=== PATIENT | female | born 1940 | race Caucasian/White ===

== ENCOUNTER 2020-07-03 13:42 | Outpatient (RCR) | payer MEDICARE, OTHER ==
[~2020-07-03 13:42] MED LIST: ALPRAZOLAM1 MG PO; AMLODIPINE BESYL5 MG PO; ASPIR 8181 MG PO; CLINDAMYCIN HC150 MG PO; ENOXAPARIN30 MG/0.3 SC; LEVAQUIN500 MG PO; LIPITOR20 MG PO; MAXZIDE 37.5 M1 EACH PO; OMEPRAZOLE40 MG PO; OXYCODONE-ACET1 EAC1 PO; PROMETHAZINE HC25 M1 PO; SERTRALINE HCL50 MG PO
== END 2020-07-09 ==
LOC: PT 13:42
PROVIDERS: ATTEND Specialist
DX: M17.0 Bilateral primary osteoarthritis of knee (principal)

== ENCOUNTER 2020-07-20 09:58 | Outpatient (RCR) | payer MEDICARE, OTHER ==
[2020-07-29] MEDS ORDERED: CIPRO500 MG/5 M PO (10:45)
== END 2020-08-08 ==
LOC: PT 09:58
PROVIDERS: ATTEND Specialist
DX: M17.0 Bilateral primary osteoarthritis of knee (principal)

== ENCOUNTER 2020-07-23 13:57 | Inpatient (IN) | payer MEDICARE, OTHER ==
[~2020-07-23] VITALS: Ht 162.6 cm; Wt 76.7 kg
[2020-07-23] MEDS ORDERED: SODIUM CHLORIDE 0.9% 1000ML 1,000 ML IV SCH ×2 (14:45→15:30)
[2020-07-23 14:47] LABS: BASOPHILS % 0.3 % (0.0-1.0); EOSINOPHILS % 0.3 % (0.0-6.0); HEMATOCRIT 35.6 % (34.2-44.1); HEMOGLOBIN 12.2 g/dL (12.0-16.0); LYMPHOCYTES # (AUTO) 0.7 (1.0-3.2); LYMPHOCYTES % 18.3 % (18.0-39.1); MEAN CORPUSCULAR HEMOGLOBIN 30.5 pg (28-32); MEAN CORPUSCULAR HGB CONC 34.3 g/dL (31-35); MONOCYTES # (AUTO) 0.1 (0.2-0.8); MONOCYTES % 2.6 % (4.4-11.3); NEUTROPHILS % 78.2 % (38.7-80.0); PLATELET COUNT 210 x10e3/uL (140-360); RED CELL DISTRIBUTION WIDTH 12.2 % (11.7-14.4)
[2020-07-23 15:05] LABS: ALBUMIN 4.2 g/dL (3.5-5.0); ALBUMIN/GLOBULIN RATIO 1.5 (0.8-2.0); ANION GAP 19.1 mmol/L (8-16); CALCIUM 8.8 mg/dL (8.4-10.2); CREATININE, SERUM 1.17 mg/dL (0.57-1.11); POTASSIUM 4.1 mmol/L (3.5-5.1)
[2020-07-23 15:13] LABS: COLOR,URINE BROWN (YELLOW)
[2020-07-23 15:14] LABS: CLARITY,URINE CLOUDY (CLEAR); KETONES,URINE NEGATIVE (NEGATIVE); LEUKOCYTE ESTERASE ,URINE LARGE (NEGATIVE); NITRITE,URINE NEGATIVE (NEGATIVE); PROTEIN,URINE DIPSTICK >=300 (NEGATIVE); URINE UROBILINOGEN 1 mg/dL (0.2 - 1)
[2020-07-23] MEDS ORDERED: KETOROLAC TROMETHAMINE 30 MG/ML VIAL IV ONE (15:15)
[2020-07-23] MEDS ORDERED: ACETAMINOPHEN 325 MG TAB ONE (15:18)
[2020-07-23 15:34] LABS: BACTERIA,URINE MANY /HPF
[2020-07-23] MEDS ORDERED: ASPIRIN 325 MG TAB PO ONE (15:45)
[2020-07-23] MEDS ORDERED: ASPIRIN 81 MG CHEW TAB ONE (15:58)
[2020-07-23] MEDS: CEFEPIME 1 GM in SODIUM CHLORIDE 0.9% 50ML 50 ML IV SCH (16:00)
[2020-07-23] MEDS: PANTOPRAZOLE SOD 40 MG TABEC PO SCH (17:00)
[2020-07-23] MEDS ORDERED: ASPIRIN 81 MG ENTERIC COATED PO STA (18:24)
[2020-07-23] MEDS: SODIUM CHLORIDE 0.9% 1000ML 1,000 ML IV SCH ×2 (21:08→23:42)
[2020-07-23 22:08] VITALS: BP 115/48
[2020-07-23] MEDS: ATORVASTATIN 10 MG TAB PO SCH (22:18)
[2020-07-23] MEDS: ALPRAZOLAM 1 MG TAB PO SCH (22:18)
[2020-07-23] MEDS: HEPARIN SOD (PORCINE) 5,000 UNIT/ML VIAL SC SCH (22:33)
[2020-07-23 22:50] VITALS: BP 115/48
[2020-07-23 22:51] VITALS: BP 115/48
[2020-07-23] MEDS: ACETAMINOPHEN 325 MG TAB PO PRN (23:10)
[2020-07-24] VITALS (8 sets, daily range): BP systolic 81–118; BP diastolic 44–63
[2020-07-24] MEDS: CEFEPIME 1 GM in SODIUM CHLORIDE 0.9% 50ML 50 ML IV SCH ×2 (03:06→16:49)
[2020-07-24] MEDS: SODIUM CHLORIDE 0.9% 1000ML 1,000 ML IV SCH ×2 (05:32→16:50)
[2020-07-24 05:59] LABS: BASOPHILS % 0.3 % (0.0-1.0); HEMATOCRIT 24.7 % (34.2-44.1); HEMOGLOBIN 8.5 g/dL (12.0-16.0); LYMPHOCYTES # (AUTO) 0.8 (1.0-3.2); LYMPHOCYTES % 8.8 % (18.0-39.1); MEAN CORPUSCULAR HEMOGLOBIN 31.6 pg (28-32); MEAN CORPUSCULAR HGB CONC 34.4 g/dL (31-35); MEAN CORPUSCULAR VOLUME 91.8 fL (81-99); MONOCYTES # (AUTO) 0.6 (0.2-0.8); MONOCYTES % 6.8 % (4.4-11.3); NEUTROPHILS # (AUTO) 7.3 (2.1-6.9); NEUTROPHILS % 83.1 % (38.7-80.0); PLATELET COUNT 143 x10e3/uL (140-360); RED BLOOD COUNT 2.69 x10e6/uL (3.6-5.1); RED CELL DISTRIBUTION WIDTH 12.6 % (11.7-14.4)
[2020-07-24 06:28] LABS: ALBUMIN 2.6 g/dL (3.5-5.0); ALBUMIN/GLOBULIN RATIO 1.2 (0.8-2.0); ANION GAP 11.9 mmol/L (8-16); CREATININE, SERUM 1.22 mg/dL (0.57-1.11)
[2020-07-24 06:29] LABS: CALCIUM 6.6 mg/dL (8.4-10.2); POTASSIUM 2.9 mmol/L (3.5-5.1)
[2020-07-24 06:57] LABS: CHOL/HDL RATIO 2.3 (3.0-3.6)
[2020-07-24 07:03] LABS: THYROID STIMULATING HORMONE 1.026 uIU/mL (0.350-4.940)
[2020-07-24] MEDS ORDERED: POTASSIUM CHLORIDE 20MEQ/100ML 200 ML IV ONE (07:30)
[2020-07-24 07:32] LABS: BAND NEUTROPHILS % (MANUAL) 15 %; LYMPHOCYTES % (MANUAL) 10 % (19-48); MONOCYTES % (MANUAL) 5 % (3.4-9.0); MYELOCYTES % (MANUAL) 1 % (0-0); NEUTROPHILS % (MANUAL) 69 % (40-74)
[2020-07-24 07:33] LABS: PLATELET ESTIMATE ADEQUATE; PLATELET MORPHOLOGY COMMENT NORMAL; RBC MORPHOLOGY COMMENT NORMAL
[2020-07-24] MEDS ORDERED: CALCIUM GLUCONATE 10% INJ 4.65 MEQ in SODIUM CHLORIDE 0.9% 50ML 50 ML IV ONE (08:00)
[2020-07-24] MEDS: PANTOPRAZOLE SOD 40 MG TABEC PO SCH ×2 (08:15→16:50)
[2020-07-24] MEDS: ASPIRIN 81 MG ENTERIC COATED PO SCH (08:15)
[2020-07-24] MEDS: SERTRALINE HCL 50 MG TAB PO SCH (08:16)
[2020-07-24] MEDS ORDERED: SODIUM BICARBONATE 8.4% SYRING 50 ML ONE (08:16)
[2020-07-24] MEDS ORDERED: AMLODIPINE BESYLATE 5 MG TAB PO SCH (09:00)
[2020-07-24] MEDS: HEPARIN SOD (PORCINE) 5,000 UNIT/ML VIAL SC SCH ×2 (10:58→20:56)
[2020-07-24 11:29] LABS: BASOPHILS % 0.4 % (0.0-1.0); HEMATOCRIT 26.3 % (34.2-44.1); LYMPHOCYTES # (AUTO) 1.3 (1.0-3.2); LYMPHOCYTES % 11.8 % (18.0-39.1); MEAN CORPUSCULAR HGB CONC 34.2 g/dL (31-35); MEAN CORPUSCULAR VOLUME 90.7 fL (81-99); MONOCYTES # (AUTO) 0.8 (0.2-0.8); MONOCYTES % 7.3 % (4.4-11.3); NEUTROPHILS % 79.2 % (38.7-80.0); PLATELET COUNT 136 x10e3/uL (140-360); RED CELL DISTRIBUTION WIDTH 12.7 % (11.7-14.4)
[2020-07-24] MEDS ORDERED: AMLODIPINE BESYLATE 5 MG TAB PO PRN (14:00)
[2020-07-24] MEDS: ACETAMINOPHEN 325 MG TAB PO PRN (19:35)
[2020-07-24] MEDS: ATORVASTATIN 10 MG TAB PO SCH (20:54)
[2020-07-24] MEDS: ALPRAZOLAM 1 MG TAB PO SCH (20:54)
[2020-07-25] VITALS (8 sets, daily range): BP systolic 106–135; BP diastolic 50–73
[2020-07-25] MEDS: SODIUM CHLORIDE 0.9% 1000ML 1,000 ML IV SCH ×3 (02:15→21:25)
[2020-07-25] MEDS: CEFEPIME 1 GM in SODIUM CHLORIDE 0.9% 50ML 50 ML IV SCH ×2 (03:59→16:06)
[2020-07-25 04:28] LABS: BASOPHILS % 0.2 % (0.0-1.0); EOSINOPHILS # (AUTO) 0.1 (0.0-0.4); EOSINOPHILS % 0.8 % (0.0-6.0); HEMATOCRIT 27.1 % (34.2-44.1); HEMOGLOBIN 9.1 g/dL (12.0-16.0); LYMPHOCYTES # (AUTO) 1.3 (1.0-3.2); LYMPHOCYTES % 14.3 % (18.0-39.1); MEAN CORPUSCULAR HEMOGLOBIN 30.7 pg (28-32); MEAN CORPUSCULAR HGB CONC 33.6 g/dL (31-35); MEAN CORPUSCULAR VOLUME 91.6 fL (81-99); MONOCYTES # (AUTO) 0.7 (0.2-0.8); MONOCYTES % 8.1 % (4.4-11.3); NEUTROPHILS # (AUTO) 6.9 (2.1-6.9); NEUTROPHILS % 75.5 % (38.7-80.0); PLATELET COUNT 134 x10e3/uL (140-360); RED BLOOD COUNT 2.96 x10e6/uL (3.6-5.1); RED CELL DISTRIBUTION WIDTH 12.7 % (11.7-14.4)
[2020-07-25 04:44] LABS: ALBUMIN 2.8 g/dL (3.5-5.0); ALBUMIN/GLOBULIN RATIO 1.1 (0.8-2.0); ANION GAP 8.9 mmol/L (8-16); CREATININE, SERUM 1.13 mg/dL (0.57-1.11)
[2020-07-25 04:45] LABS: CALCIUM 7.8 mg/dL (8.4-10.2); POTASSIUM 3.9 mmol/L (3.5-5.1)
[2020-07-25] MEDS: SERTRALINE HCL 50 MG TAB PO SCH (07:50)
[2020-07-25] MEDS: ASPIRIN 81 MG ENTERIC COATED PO SCH (07:50)
[2020-07-25] MEDS: PANTOPRAZOLE SOD 40 MG TABEC PO SCH ×2 (07:50→16:06)
[2020-07-25] MEDS: HEPARIN SOD (PORCINE) 5,000 UNIT/ML VIAL SC SCH ×2 (07:58→20:11)
[2020-07-25 08:31] LABS: LYMPHOCYTES % (MANUAL) 15 % (19-48); MONOCYTES % (MANUAL) 4 % (3.4-9.0); NEUTROPHILS % (MANUAL) 81 % (40-74)
[2020-07-25 08:32] LABS: PLATELET ESTIMATE ADEQUATE; PLATELET MORPHOLOGY COMMENT NORMAL; RBC MORPHOLOGY COMMENT NORMAL
[2020-07-25] MEDS ORDERED: CLOPIDOGREL BISULFATE 75 MG TAB PO ONE (10:30)
[2020-07-25] MEDS ORDERED: IOPAMIDOL 370 MG/ML 200 ML INFUS..BTL INJ ONE (10:54)
[2020-07-25] MEDS ORDERED: SODIUM CHLORIDE 0.9% 50ML 50 ML ONE (10:54)
[2020-07-25] MEDS: ACETAMINOPHEN 325 MG TAB PO PRN ×2 (11:00→20:11)
[2020-07-25] MEDS: ATORVASTATIN 10 MG TAB PO SCH (20:10)
[2020-07-25] MEDS: ALPRAZOLAM 1 MG TAB PO SCH (20:10)
[2020-07-26] VITALS (7 sets, daily range): BP systolic 98–127; BP diastolic 45–81
[2020-07-26] MEDS: SODIUM CHLORIDE 0.9% 1000ML 1,000 ML IV SCH (03:10)
[2020-07-26] MEDS: CEFEPIME 1 GM in SODIUM CHLORIDE 0.9% 50ML 50 ML IV SCH ×2 (03:10→16:37)
[2020-07-26 05:10] LABS: BASOPHILS % 0.2 % (0.0-1.0); EOSINOPHILS # (AUTO) 0.1 (0.0-0.4); EOSINOPHILS % 0.9 % (0.0-6.0); HEMATOCRIT 26.8 % (34.2-44.1); LYMPHOCYTES # (AUTO) 1.3 (1.0-3.2); LYMPHOCYTES % 14.4 % (18.0-39.1); MEAN CORPUSCULAR HEMOGLOBIN 31.3 pg (28-32); MEAN CORPUSCULAR HGB CONC 33.6 g/dL (31-35); MEAN CORPUSCULAR VOLUME 93.1 fL (81-99); MONOCYTES # (AUTO) 0.7 (0.2-0.8); MONOCYTES % 7.8 % (4.4-11.3); NEUTROPHILS # (AUTO) 6.8 (2.1-6.9); NEUTROPHILS % 76.1 % (38.7-80.0); PLATELET COUNT 156 x10e3/uL (140-360); RED BLOOD COUNT 2.88 x10e6/uL (3.6-5.1); RED CELL DISTRIBUTION WIDTH 12.8 % (11.7-14.4)
[2020-07-26 05:27] LABS: INR 0.96; PROTHROMBIN TIME 13.4 seconds (11.9-14.5)
[2020-07-26 05:39] LABS: ALANINE AMINOTRANSFERASE 36 IU/L (0-55); ALBUMIN 2.7 g/dL (3.5-5.0); ALKALINE PHOSPHATASE 102 IU/L (40-150); BLOOD UREA NITROGEN 16 mg/dL (7-26); BUN/CREATININE RATIO 20 (6-25); CALCIUM 8.4 mg/dL (8.4-10.2); CARBON DIOXIDE 20 mmol/L (22-29); CHLORIDE 109 mmol/L (98-107); CREATININE, SERUM 0.82 mg/dL (0.57-1.11); EST GLOMERULAR FILTRATION RATE > 60 ML/MIN (60-); GLUCOSE 108 mg/dL (74-118); SODIUM 135 mmol/L (136-145)
[2020-07-26] MEDS: ACETAMINOPHEN 325 MG TAB PO PRN ×2 (06:42→16:42)
[2020-07-26] MEDS: PANTOPRAZOLE SOD 40 MG TABEC PO SCH ×2 (07:30→16:37)
[2020-07-26] MEDS: HEPARIN SOD (PORCINE) 5,000 UNIT/ML VIAL SC SCH ×2 (09:00→21:14)
[2020-07-26] MEDS ORDERED: ALBUTEROL/IPRATROPIUM 3 ML NEB NEB PRN (09:15)
[2020-07-26] MEDS: ASPIRIN 81 MG ENTERIC COATED PO SCH (09:43)
[2020-07-26] MEDS: SERTRALINE HCL 50 MG TAB PO SCH (09:44)
[2020-07-26] MEDS: CLOPIDOGREL BISULFATE 75 MG TAB PO SCH (09:44)
[2020-07-26] MEDS ORDERED: FUROSEMIDE INJ 10 MG/ML 4 ML VIAL IV SCH (10:00)
[2020-07-26] MEDS: ALPRAZOLAM 1 MG TAB PO SCH (20:22)
[2020-07-26] MEDS: ATORVASTATIN 10 MG TAB PO SCH (20:22)
[2020-07-26] MEDS ORDERED: HYDROCODONE/APAP 5MG-325MG TAB PO ONE (20:45)
[2020-07-27] VITALS (8 sets, daily range): BP systolic 106–139; BP diastolic 52–72
[2020-07-27 04:06] LABS: BASOPHILS % 0.3 % (0.0-1.0); EOSINOPHILS # (AUTO) 0.2 (0.0-0.4); HEMATOCRIT 26.8 % (34.2-44.1); HEMOGLOBIN 8.9 g/dL (12.0-16.0); LYMPHOCYTES # (AUTO) 1.5 (1.0-3.2); LYMPHOCYTES % 19.7 % (18.0-39.1); MEAN CORPUSCULAR HEMOGLOBIN 30.8 pg (28-32); MEAN CORPUSCULAR HGB CONC 33.2 g/dL (31-35); MEAN CORPUSCULAR VOLUME 92.7 fL (81-99); MONOCYTES # (AUTO) 0.9 (0.2-0.8); MONOCYTES % 12.2 % (4.4-11.3); NEUTROPHILS # (AUTO) 4.8 (2.1-6.9); NEUTROPHILS % 64.9 % (38.7-80.0); PLATELET COUNT 162 x10e3/uL (140-360); RED BLOOD COUNT 2.89 x10e6/uL (3.6-5.1)
[2020-07-27 04:36] LABS: ALANINE AMINOTRANSFERASE 40 IU/L (0-55); ALBUMIN 2.8 g/dL (3.5-5.0); ALBUMIN/GLOBULIN RATIO 0.9 (0.8-2.0); ALKALINE PHOSPHATASE 96 IU/L (40-150); ANION GAP 10.9 mmol/L (8-16); BLOOD UREA NITROGEN 15 mg/dL (7-26); BUN/CREATININE RATIO 19 (6-25); CALCIUM 8.5 mg/dL (8.4-10.2); CARBON DIOXIDE 23 mmol/L (22-29); CHLORIDE 105 mmol/L (98-107); CREATININE, SERUM 0.81 mg/dL (0.57-1.11); EST GLOMERULAR FILTRATION RATE > 60 ML/MIN (60-); GLUCOSE 104 mg/dL (74-118); POTASSIUM 3.9 mmol/L (3.5-5.1); SODIUM 135 mmol/L (136-145)
[2020-07-27] MEDS ORDERED: SODIUM CHLORIDE 0.9% 1000ML 1,000 ML IV SCH (05:00)
[2020-07-27] MEDS: CEFEPIME 1 GM in SODIUM CHLORIDE 0.9% 50ML 50 ML IV SCH ×3 (06:00→22:32)
[2020-07-27] MEDS: PANTOPRAZOLE SOD 40 MG TABEC PO SCH ×2 (07:30→17:18)
[2020-07-27] MEDS: ASPIRIN 81 MG ENTERIC COATED PO SCH ×3 (08:04→09:01)
[2020-07-27] MEDS: CLOPIDOGREL BISULFATE 75 MG TAB PO SCH ×3 (08:04→09:01)
[2020-07-27] MEDS ORDERED: MIDAZOLAM HCL 2 MG/2 ML VIAL ONE (08:48)
[2020-07-27] MEDS ORDERED: FENTANYL CITRATE/PF 100MCG/2 ML INJ ONE (08:49)
[2020-07-27] MEDS ORDERED: LIDOCAINE HCL 2% LOCAL 20 ML VIAL ONE (08:49)
[2020-07-27] MEDS ORDERED: IOPAMIDOL 370 MG/ML 200 ML INFUS..BTL INJ ONE (08:51)
[2020-07-27] MEDS ORDERED: SODIUM CHLORIDE 0.9% 1000ML 1,000 ML ONE (08:51)
[2020-07-27] MEDS ORDERED: HEPARIN SOD/SOD CHLORIDE 2,000 ML ONE (08:51)
[2020-07-27] MEDS: SERTRALINE HCL 50 MG TAB PO SCH (09:01)
[2020-07-27 11:02] LABS: ANION GAP 10.9 mmol/L (8-16); BLOOD UREA NITROGEN 14 mg/dL (7-26); BUN/CREATININE RATIO 18 (6-25); CALCIUM 8.5 mg/dL (8.4-10.2); CARBON DIOXIDE 23 mmol/L (22-29); CHLORIDE 105 mmol/L (98-107); CREATININE, SERUM 0.76 mg/dL (0.57-1.11); EST GLOMERULAR FILTRATION RATE > 60 ML/MIN (60-); GLUCOSE 100 mg/dL (74-118); POTASSIUM 3.9 mmol/L (3.5-5.1); SODIUM 135 mmol/L (136-145)
[2020-07-27] MEDS: ACETAMINOPHEN 325 MG TAB PO PRN (15:44)
[2020-07-27] MEDS: ATORVASTATIN 10 MG TAB PO SCH (22:32)
[2020-07-27] MEDS: ALPRAZOLAM 1 MG TAB PO SCH (22:32)
[2020-07-28] VITALS (8 sets, daily range): BP systolic 113–152; BP diastolic 51–70
[2020-07-28] MEDS: CEFEPIME 1 GM in SODIUM CHLORIDE 0.9% 50ML 50 ML IV SCH ×3 (06:44→22:00)
[2020-07-28 06:49] LABS: BASOPHILS % 0.4 % (0.0-1.0); EOSINOPHILS # (AUTO) 0.1 (0.0-0.4); EOSINOPHILS % 1.6 % (0.0-6.0); HEMATOCRIT 25.7 % (34.2-44.1); HEMOGLOBIN 8.5 g/dL (12.0-16.0); LYMPHOCYTES % 17.4 % (18.0-39.1); MEAN CORPUSCULAR HEMOGLOBIN 30.7 pg (28-32); MEAN CORPUSCULAR HGB CONC 33.1 g/dL (31-35); MEAN CORPUSCULAR VOLUME 92.8 fL (81-99); MONOCYTES # (AUTO) 0.8 (0.2-0.8); MONOCYTES % 13.7 % (4.4-11.3); NEUTROPHILS # (AUTO) 3.6 (2.1-6.9); NEUTROPHILS % 65.3 % (38.7-80.0); PLATELET COUNT 152 x10e3/uL (140-360); RED BLOOD COUNT 2.77 x10e6/uL (3.6-5.1); RED CELL DISTRIBUTION WIDTH 12.7 % (11.7-14.4)
[2020-07-28 07:19] LABS: ALANINE AMINOTRANSFERASE 44 IU/L (0-55); ALBUMIN 2.7 g/dL (3.5-5.0); ALBUMIN/GLOBULIN RATIO 0.9 (0.8-2.0); ALKALINE PHOSPHATASE 95 IU/L (40-150); ANION GAP 9.8 mmol/L (8-16); BLOOD UREA NITROGEN 11 mg/dL (7-26); BUN/CREATININE RATIO 15 (6-25); CALCIUM 8.2 mg/dL (8.4-10.2); CARBON DIOXIDE 26 mmol/L (22-29); CHLORIDE 105 mmol/L (98-107); CREATININE, SERUM 0.75 mg/dL (0.57-1.11); EST GLOMERULAR FILTRATION RATE > 60 ML/MIN (60-); GLUCOSE 108 mg/dL (74-118); POTASSIUM 3.8 mmol/L (3.5-5.1); SODIUM 137 mmol/L (136-145)
[2020-07-28] MEDS: CLOPIDOGREL BISULFATE 75 MG TAB PO SCH (08:38)
[2020-07-28] MEDS: ASPIRIN 81 MG ENTERIC COATED PO SCH (08:38)
[2020-07-28] MEDS: SERTRALINE HCL 50 MG TAB PO SCH (08:38)
[2020-07-28] MEDS: PANTOPRAZOLE SOD 40 MG TABEC PO SCH ×2 (08:38→17:53)
[2020-07-28] MEDS: ACETAMINOPHEN 325 MG TAB PO PRN ×3 (08:44→21:03)
[2020-07-28] MEDS: ATORVASTATIN 10 MG TAB PO SCH (20:59)
[2020-07-28] MEDS: ALPRAZOLAM 1 MG TAB PO SCH (20:59)
[2020-07-29] MEDS: CEFEPIME 1 GM in SODIUM CHLORIDE 0.9% 50ML 50 ML IV SCH ×3 (06:00→22:00)
[2020-07-29] MEDS: PANTOPRAZOLE SOD 40 MG TABEC PO SCH ×2 (08:44→17:56)
[2020-07-29] MEDS: CLOPIDOGREL BISULFATE 75 MG TAB PO SCH (08:44)
[2020-07-29] MEDS: ASPIRIN 81 MG ENTERIC COATED PO SCH (08:44)
[2020-07-29] MEDS: ACETAMINOPHEN 325 MG TAB PO PRN ×3 (08:44→22:12)
[2020-07-29] MEDS: SERTRALINE HCL 50 MG TAB PO SCH (08:44)
[2020-07-29] MEDS ORDERED: CIPRO500 MG/5 M PO (10:45)
[2020-07-29] MEDS: ATORVASTATIN 10 MG TAB PO SCH (21:00)
[2020-07-29] MEDS: ALPRAZOLAM 1 MG TAB PO SCH (21:00)
[2020-07-29] MEDS ORDERED: ZOLPIDEM TARTRATE 5 MG TAB PO ONE (22:00)
[2020-07-30 04:04] VITALS: BP 122/61
[2020-07-30] MEDS: CEFEPIME 1 GM in SODIUM CHLORIDE 0.9% 50ML 50 ML IV SCH (05:43)
[2020-07-30] MEDS: ASPIRIN 81 MG ENTERIC COATED PO SCH (09:00)
[2020-07-30] MEDS: CLOPIDOGREL BISULFATE 75 MG TAB PO SCH (09:00)
[2020-07-30] MEDS: SERTRALINE HCL 50 MG TAB PO SCH (09:00)
[2020-07-30] MEDS: PANTOPRAZOLE SOD 40 MG TABEC PO SCH (09:00)
[2020-07-30] MEDS ORDERED: CIPROFLOXACIN 500 MG TAB ONE (20:31)
== END 2020-07-30 22:00 | disposition home or self-care (01) | DRG 871 ==
LOC: ER 14:35 → ERHOLD 15:56 → MED/SURG3 21:35
PROVIDERS: ADMIT Internal Medicine; ATTEND Internal Medicine
PROC: 02HV33Z Insertion of Infusion Device into Superior Vena Cava, Percutaneous Approach (ICD-10-PCS; 2020-07-23)
PROC: 4A023N7 Measurement of Cardiac Sampling and Pressure, Left Heart, Percutaneous Approach (ICD-10-PCS; principal; 2020-07-27)
PROC: B2111ZZ Fluoroscopy of Multiple Coronary Arteries using Low Osmolar Contrast (ICD-10-PCS; 2020-07-27)
PROC: B2151ZZ Fluoroscopy of Left Heart using Low Osmolar Contrast (ICD-10-PCS; 2020-07-27)
PROC: B41F1ZZ Fluoroscopy of Right Lower Extremity Arteries using Low Osmolar Contrast (ICD-10-PCS; 2020-07-27)
DX: A41.9 Sepsis, unspecified organism (principal); I21.4 Non-ST elevation (NSTEMI) myocardial infarction; J96.01 Acute respiratory failure with hypoxia; I50.21 Acute systolic (congestive) heart failure; N39.0 Urinary tract infection, site not specified; E78.5 Hyperlipidemia, unspecified; Z85.528 Personal history of other malignant neoplasm of kidney; D64.9 Anemia, unspecified; K22.70 Barrett's esophagus without dysplasia; E66.9 Obesity, unspecified; Z68.29 Body mass index [BMI] 29.0-29.9, adult; B96.20 Unspecified Escherichia coli [E. coli] as the cause of diseases classified elsewhere; Z20.822 Contact with and (suspected) exposure to COVID-19; I11.0 Hypertensive heart disease with heart failure
CPT/HCPCS: 36415; 36569; 71045; 71260; 76700; 80048; 80053; 80061; 81001; 82270; 82948; 83605; 83880; 83970; 84100; 84443; 84484; 85025; 85610; 85730; 87040; 87071; 87086; 87186; 87205; 93005; 93306; 93458; 99152; 99153; 99284; C1760; C1766; C1769; C1887; J0610; J0692; J1644; J1885; J1940; J2001; J2250; J3010; J3480; J7030; Q9967; U0002

== ENCOUNTER → 2021-07-31 | Outpatient (CLI) | payer MEDICARE, OTHER ==
[~2021-07-31] MED LIST changes: +CIPRO500 MG/5 M PO
== END ==
LOC: CT 09:54
PROVIDERS: ATTEND Internal Medicine
DX: Z87.891 Personal history of nicotine dependence (principal); J43.9 Emphysema, unspecified
CPT/HCPCS: 71250

== ENCOUNTER → 2022-06-13 | Outpatient (CLI) | payer MEDICARE, OTHER | LOC: CT 09:57 | PROVIDERS: ATTEND Internal Medicine | DX: R91.8 Other nonspecific abnormal finding of lung field (principal) | CPT/HCPCS: 71250 ==

== ENCOUNTER → 2023-08-12 | Outpatient (REF) | payer MEDICARE, OTHER | LOC: CT 13:45 | PROVIDERS: ATTEND Internal Medicine | DX: R91.8 Other nonspecific abnormal finding of lung field (principal) | CPT/HCPCS: 71250 ==

== ENCOUNTER → 2023-10-07 | Outpatient (REF) | payer MEDICARE, OTHER | LOC: RAD 09:17 | PROVIDERS: ATTEND Anesthesiology Addiction Medicine | DX: M54.2 Cervicalgia (principal) | CPT/HCPCS: 72040; 72100 ==

== ENCOUNTER 2024-06-17 12:41 | Emergency (ER) | payer MEDICARE, OTHER ==
[~2024-06-17] VITALS: Ht 160 cm; Wt 74.4 kg
[2024-06-17 13:00] VITALS: PULSE 64; RESP 16; TEMP 98.5
[2024-06-17 16:31] VITALS: BP 159/53; PULSE 59; RESP 15; O2SAT 95
== END 2024-06-17 16:20 | disposition home or self-care (01) ==
LOC: ER 13:29
DX: S00.83XA Contusion of other part of head, initial encounter (principal); W01.0XXA Fall on same level from slipping, tripping and stumbling without subsequent striking against object, initial encounter; Y93.01 Activity, walking, marching and hiking; Y92.89 Other specified places as the place of occurrence of the external cause; I10 Essential (primary) hypertension; E78.5 Hyperlipidemia, unspecified; K21.9 Gastro-esophageal reflux disease without esophagitis; F41.9 Anxiety disorder, unspecified; M54.9 Dorsalgia, unspecified; G89.29 Other chronic pain; Z85.3 Personal history of malignant neoplasm of breast
CPT/HCPCS: 70450; 72125; 99283

== ENCOUNTER → 2024-06-27 | Outpatient (REF) | payer MEDICARE, OTHER | LOC: RAD 09:56 | PROVIDERS: ATTEND Anesthesiology Addiction Medicine | DX: M54.6 Pain in thoracic spine (principal) | CPT/HCPCS: 72072 ==

== ENCOUNTER → 2024-09-21 | Outpatient (REF) | payer MEDICARE, OTHER | LOC: CT 11:43 | PROVIDERS: ATTEND Internal Medicine | DX: R91.8 Other nonspecific abnormal finding of lung field (principal) | CPT/HCPCS: 71250 ==